=== PATIENT | male | born 1985 | race Caucasian/White ===

== ENCOUNTER 2019-02-08 18:14 | Emergency (ER) | payer SELFPAY ==
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
[2019-02-08] MEDS ORDERED: Lidocaine 1% 10 ML MDV INJECT ONE (19:40)
[2019-02-08] MEDS ORDERED: Ketorolac 60 MG/2 ML SDV IM ONE (20:01)
--- NOTE | 2019-02-09 12:00 | CR ---
Left thumb: Four views of the left thumb were obtained. Comparison: No previous thumb or hand exam is available. Joint spaces are preserved. No fracture, dislocation or other bony abnormality is seen. Impression: 1. No bony abnormality is identified on the left thumb exam. Diagnostic code #1
--- NOTE | 2019-02-10 08:01 | CR ---
Left wrist: Four views of the left wrist were obtained. Comparison: No prior wrist exam. Joint spaces are preserved. No fracture, dislocation or other bony abnormality is identified. Impression: 1. No abnormality is appreciated on left wrist exam. Diagnostic code #1
== END 2019-02-08 21:21 | disposition home or self-care (01) ==
LOC: JD.ED 18:14
DX: S67.02XA Crushing injury of left thumb, initial encounter (principal); S67.32XA Crushing injury of left wrist, initial encounter; S61.012A Laceration without foreign body of left thumb without damage to nail, initial encounter; Z88.7 Allergy status to serum and vaccine; W20.8XXA Other cause of strike by thrown, projected or falling object, initial encounter
CPT/HCPCS: 29125; 73110; 73140; 99283; J1885; J2001; 12001

== ENCOUNTER 2020-09-04 09:36 | Emergency (ER) | payer OTHER ==
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
--- NOTE | 2020-09-06 07:15 | CR ---
Chest: AP view of the chest was obtained. Comparison: Prior chest x-ray of 10/23/17. Heart size and mediastinum are normal. Lungs are clear with no acute parenchymal change. No acute osseous abnormality is appreciated. Impression: 1. Nothing acute is appreciated on frontal chest x-ray. 2. No appreciable change is seen from previous chest x-ray. Diagnostic code #1
--- NOTE | 2020-09-06 07:31 | CR ---
Left shoulder: 3 views of the left shoulder were obtained. Comparison: No prior left shoulder exam is available. Glenohumeral joint and acromioclavicular joint appear within normal limits. No acute fracture, dislocation or other bony abnormality is appreciated. Impression: 1. Nothing acute is seen on left shoulder study. Diagnostic code #1
--- NOTE | 2020-09-06 08:05 | CT ---
CT cervical spine Technique: Multiple axial sections were obtained from above C1 inferiorly to the bottom of T2. Reconstructed coronal and sagittal images were obtained. Comparison: Prior cervical spine CT study of 01/21/12. Findings: Mild endplate concavities are seen superiorly within C7 and T1 which appear old. Old ununited fracture is noted within the tip of the spinous process of T1. Vertebral body heights are maintained. No bony central or bony neural foraminal stenosis is seen. Apophyseal joints appear within normal limits for the patient's age. No acute fracture or subluxation is seen. Impression: 1. Old findings within C7 and T1 as noted above. 2. Nothing acute is appreciated on CT study of the cervical spine. Diagnostic code #2 I slightly disagree with preliminary report from [facility], finalized on 09/04/20, 12:44 PM CDT, code #2
--- NOTE | 2020-09-06 09:17 | CT ---
CT thoracic spine Technique: Multiple axial sections through the thoracic spine were obtained. Reconstructed coronal and sagittal images were obtained. Comparison: Prior cervical spine study performed on the same day as well as old cervical spine CT exam performed on 01/21/12. Findings: Vertebral body heights and disc spaces are maintained. No bony central or bony neural foraminal stenosis is seen. Old findings are noted within the cervical spine and within T1. No paravertebral soft tissue swelling is noted. Impression: 1. Old findings within the cervical spine and within T1. Diagnostic code #2 I minimally disagree with preliminary report from [facility], finalized on 09/04/20, 12:50 PM CDT, code 2
--- NOTE | 2020-09-06 09:18 | CT ---
Head CT Technique: Multiple axial sections through the brain were obtained. Reconstructed coronal and sagittal images were obtained. Intravenous contrast was not utilized. Comparison: Prior head CT study of 12/06/18. Findings: Ventricles along with basal cisterns and sulci over the convexities are within normal limits. No abnormal parenchymal densities are seen. No evidence of intracranial hemorrhage. No midline shift or mass-effect is seen. Bone window settings were reviewed. Mild mucosal thickening is noted within the ethmoid and frontal sinuses. No acute mastoid sinus findings are seen. No acute calvarial abnormality is appreciated. Impression: 1. Nothing acute is appreciated on noncontrast head CT study. 2. Mild mucosal thickening within the paranasal sinuses which is most likely chronic. Diagnostic code #2 I agree with preliminary report from [facility], finalized on 09/04/20, 12:40 PM CDT, code 1
--- NOTE | 2020-09-06 09:19 | CT ---
CT lumbar spine Technique: Multiple axial sections through the lumbar spine were obtained. Reconstructed coronal and sagittal images were obtained. Findings: Vertebral body heights and disc spaces are maintained. No fracture is appreciated. No abnormal subluxation is appreciated. Posterior discs appear to be fairly well preserved. Impression: 1. Nothing acute is seen on CT study of the lumbar spine. Diagnostic code #1 I agree with preliminary report from [facility], finalized on 09/04/20, 12:51 PM CDT, code 1
== END 2020-09-04 12:15 | disposition home or self-care (01) ==
LOC: JD.ED 09:36
DX: S16.1XXA Strain of muscle, fascia and tendon at neck level, initial encounter (principal); S39.012A Strain of muscle, fascia and tendon of lower back, initial encounter; S29.019A Strain of muscle and tendon of unspecified wall of thorax, initial encounter; I10 Essential (primary) hypertension; Z88.7 Allergy status to serum and vaccine; V03.10XA Pedestrian on foot injured in collision with car, pick-up truck or van in traffic accident, initial encounter; Y92.410 Unspecified street and highway as the place of occurrence of the external cause
CPT/HCPCS: 70450; 70450-26; 71045; 71045-26; 72125; 72125-26; 72128; 72128-26; 72131; 72131-26; 73030-26-LT; 73030-LT; 99284; 99284-25

== ENCOUNTER 2021-03-24 12:04 | Emergency (ER) | payer MEDICAID ==
[2021-03-24] MEDS ORDERED: Lidocaine 1% 10 ML MDV INJECT ONE (12:32)
--- NOTE | 2021-03-24 13:05 | EDM.PDOC ---
ED HPI GENERAL MEDICAL PROBLEM - General Chief Complaint: Laceration Stated Complaint: RT FINGER LAC Time Seen by Provider: 03/24/21 12:09 Source of Information: Reports: Patient History Limitations: Reports: No Limitations - History of Present Illness INITIAL COMMENTS - FREE TEXT/NARRATIVE: 36-year-old male presents the emergency department with a laceration to the palmar aspect of his distal right middle finger. Patient states he reached behind his seat and accidentally grabbed the blade and of a floors buffer. Bleeding was controlled with pressure. Patient sustained a 1 cm laceration. Patient believes last tetanus shot was less than 5 years ago. Right Finger-Middle Pain Score (Numeric/FACES): 1 - Related Data Allergies Allergy/AdvReac Type Severity Reaction Status Date / Time diphtheria, pertussis, Allergy Anaphylactic Verified 03/24/21 12:23 tetanus vacc Shock Home Meds: Home Meds . [No Known Home Meds] 03/24/21 [History] Past Medical History - Past Health History Medical/Surgical History: Denies Medical/Surgical History Cardiovascular History: Reports: Hypertension Other Cardiovascular History: chronic hypertension and is non-compliant with meds Gastrointestinal History: Reports: Other (See Below) Other Gastrointestinal History: endoscopy Psychiatric History: Reports: Anxiety - Infectious Disease History Infectious Disease History: Reports: Influenza, Novel Coronavirus Social & Family History - Tobacco Use Tobacco Use Status *Q: Never Tobacco User Second Hand Smoke Exposure: No - Caffeine Use Caffeine Use: Reports: None - Alcohol Use Days Per Week of Alcohol Use: 7 Number of Drinks Per Day: 1 Total Drinks Per Week: 7 - Recreational Drug Use Recreational Drug Use: No - Living Situation & Occupation Living situation: Reports: 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 ED EXAM, SKIN/RASH Exam: See Below Exam Limited By: No Limitations General Appearance: Alert, WD/WN, No Apparent Distress Ears: Normal External Exam, Hearing Grossly Normal Nose: Normal Inspection Throat/Mouth: Normal Inspection, Normal Lips, Normal Voice, No Airway Compromise Head: Atraumatic, Normocephalic Neck: Normal Inspection, Supple Respiratory/Chest: No Respiratory Distress Cardiovascular: Normal Peripheral Pulses, Regular Rate, Rhythm GI/Abdominal: No Distention (Male) Exam: Deferred Rectal (Males) Exam: Deferred Back Exam: Normal Inspection Extremities: Normal Range of Motion, Non-Tender, Normal Capillary Refill, Other (1 and half centimeter laceration noted to the palmar aspect of the patient's right middle finger on the distal end) Neurological: Alert, Oriented, Normal Cognition Psychiatric: Normal Affect, Normal Mood Skin: Warm, Dry, Intact, Normal Color, No Rash Location, Skin: Upper Extremity, Right Characteristics: Linear Lymphatic: No Adenopathy ED SKIN PROCEDURES - Laceration/Wound Repair Right Medial Distal Digit - 3rd (Middle) Appearance: Superficial Anesthetic Type: Local Local Anesthesia - Lidocaine (Xylocaine): 1% Plain Local Anesthetic Volume: 2cc Closed with: Sutures Lac/Wound length In cm: 1.5 Suture Size: 5-0 # of Sutures: 5 Suture Type: Nylon, Interrupted Course - Vital Signs Text/Narrative:: As stated above, patient presents with a laceration to his right middle finger on the palmar aspect along the pad. Patient sustained a 1 and half centimeter linear laceration. Bleeding is controlled. I have ordered lidocaine as the wound will need to be sutured. Last Recorded V/S: Last Vital Signs Temp 97.5 F 03/24/21 12:16 Pulse 82 03/24/21 12:16 Resp 16 03/24/21 12:16 BP 143/110 H 03/24/21 12:16 Pulse Ox - Orders/Labs/Meds Meds: Medications Discontinued Medications Generic Name Dose Route Start Last Admin Trade Name Ricarda PRN Reason Stop Dose Admin Lidocaine HCl 10 ml 03/24/21 12:32 03/24/21 12:41 Lidocaine 1% 10 Ml Mdv INJECT 03/24/21 12:33 10 ml ONETIME ONE Administration - Re-Assessments/Exams Free Text/Narrative Re-Assessment/Exam: 03/24/21 13:07 Wound was prepped and draped in sterile fashion. Patient tolerated suturing well. He will be discharged home. Departure - Departure Time of Disposition: 13:03 Disposition: Home, Self-Care 01 Condition: Good Clinical Impression: Laceration of finger of right hand Qualifiers: Encounter type: initial encounter Finger: middle finger Damage to nail status: without damage Foreign body presence: without foreign body Qualified Code(s): S61.212A - Laceration without foreign body of right middle finger without damage to nail, initial encounter - Discharge Information Instructions: Laceration Care, Adult, [id number], Sutures, [place], or Adhe sive Wound Closure, [id number] Referrals: Cole Viera PA-C [Primary Care Provider] - Forms: ED Department Discharge Additional Instructions: You were seen in the emergency department today for a laceration to your right middle finger. Wound was cleaned and 5 sutures were placed. Leave the dressing in place for 24 hours. Once you remove the dressing and wash the wound twice daily with mild soap such as Dial or Wilfredo's baby shampoo. Pat the wound dry. Apply a thin film of bacitracin and a clean bandage. Sutures will need to be removed in 10 days time. Watch for any signs or symptoms of infection such as increased warmth, redness, swelling or pus. Should your condition worsen or change, do not hesitate returning to the emergency department. Sepsis Event Note (ED) - Evaluation Sepsis Screening Result: No Definite Risk - Focused Exam Vital Signs: Vital Signs Temp Pulse Resp BP 03/24/21 12:16 97.5 F 82 16 143/110 H
== END 2021-03-24 13:19 | disposition home or self-care (01) ==
LOC: JD.ED 12:04
DX: S61.212A Laceration without foreign body of right middle finger without damage to nail, initial encounter (principal); I10 Essential (primary) hypertension; Z88.7 Allergy status to serum and vaccine; W26.8XXA Contact with other sharp object(s), not elsewhere classified, initial encounter
CPT/HCPCS: 12001; 99282-25

== ENCOUNTER → 2021-03-25 | Day surgery (SDC) | payer OTHER ==
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
[~2021-03-25] MED LIST: Acetaminophen/HYDROcodone 325-5 MG Tab PO ONE; Albuterol 0.083% 2.5 MG/3 ML Neb Soln NEB ONE; Bupivacaine 0.25% 10 ML SDV ONE; Cyclobenzaprine 10 MG Tab PO ONE; Lactated Ringers 1,000 ML IV SCH; Lidocaine 1%/Sod Bicarbonate in NS 8.4% 1 ML Syringe IDERM PRN; Midazolam 1 MG/ML 2 ML SDV ONE; Ondansetron 4 MG/2 ML SDV ONE; Propofol 200 MG/20 ML SDV ONE; Sodium Chloride 0.9% 10 ML Syringe FLUSH PRN; Triamcinolone Acetonide 40 MG/ML 1 ML SDV ONE; fentaNYL 100 MCG/2 ML SDV ONE
--- NOTE | 2021-03-25 12:41 | PCM48HPAN ---
Post Anesthesia Note - EVALUATION WITHIN 48HRS OF ANESTHETIC Vital Signs in Normal Range: Yes Patient Participated in Evaluation: Yes Respiratory Function Stable: Yes Airway Patent: Yes Cardiovascular Function Stable: Yes Hydration Status Stable: Yes Pain Control Satisfactory: Yes Nausea and Vomiting Control Satisfactory: Yes Mental Status Recovered: Yes Vital Signs: Last Vital Signs Temp 98.1 F 03/25/21 10:40 Pulse 90 03/25/21 10:40 Resp 16 03/25/21 10:40 BP 127/97 H 03/25/21 10:40 Pulse Ox 97 03/25/21 10:40 Vital signs at 1235: 132/72 HR 95 96% RA RR 16 97.8
--- NOTE | 2021-03-29 09:32 | PCM.OPNOTE ---
- General Post-Op/Procedure Note Date of Surgery/Procedure: 03/25/21 Operative Procedure(s): left shoulder manipulation under anesthesia with left shoulder corticosteroid injection Pre Op Diagnosis: left shoulder adhesive capsulitis Post-Op Diagnosis: left upper extremity and neck pain Anesthesia Technique: MAC Primary Surgeon: Ar Topete Anesthesia Provider: Nirali Hughes EBL in mLs: 0 Complications: None Condition: Good
--- NOTE | 2021-03-29 09:55 | OR ---
DATE OF OPERATION: 03/25/2021 SURGEON: Ar Topete MD OPERATION PERFORMED: Left shoulder manipulation under anesthesia with left shoulder corticosteroid injection. PREOPERATIVE DIAGNOSIS: Left shoulder adhesive capsulitis. POSTOPERATIVE DIAGNOSIS: Left upper extremity pain and neck pain. ANESTHESIA: MAC. ANESTHESIA PROVIDER: Sebastian Aguilera. ESTIMATED BLOOD LOSS: Not applicable. COMPLICATIONS: None. CONDITION: Stable. DESCRIPTION OF PROCEDURE: The patient was identified in the preoperative holding area. Proper site was marked and identified by the surgeon. The patient's preop manipulation motion showed -5 degrees of external rotation and minimal 50 degrees of abduction and forward flexion. After this, the patient was brought back to the operating theater where after adequate anesthesia, the patient had full range of motion. There was no adhesive capsulitis and no contractures whatsoever when he was under anesthesia. At this time, under sterile technique 2 mL of 40 mg Kenalog, 4 mL of 0.25% Marcaine were injected into the left shoulder. The patient tolerated this well. At this time, after visiting with the patient in the PACU unit, the patient was having severe pain all the way into his neck and his whole upper extremity after that procedure. At this time, we will begin working up the patient for possible neurologic issues. DONOVAN /[id number]
== END | disposition home or self-care (01) ==
LOC: JD.SDS 10:31
PROVIDERS: ATTEND Orthopaedic Surgery
DX: M75.02 Adhesive capsulitis of left shoulder (principal); F41.8 Other specified anxiety disorders; K21.9 Gastro-esophageal reflux disease without esophagitis; I10 Essential (primary) hypertension; E55.9 Vitamin D deficiency, unspecified; G43.909 Migraine, unspecified, not intractable, without status migrainosus; Z88.8 Allergy status to other drugs, medicaments and biological substances; Z87.891 Personal history of nicotine dependence; Z79.899 Other long term (current) drug therapy
CPT/HCPCS: 20610; 23700; A9270; J2250; J2405; J2704; J3010; J3301; J3490; J7120; 01620

== ENCOUNTER 2021-05-16 08:47 | Emergency (ER) | payer BC, MEDICAID ==
[2021-05-16] MEDS ORDERED: Ketorolac 15 MG/ML SDV IVPUSH ONE (09:21)
[2021-05-16] MEDS ORDERED: Lactated Ringers 1,000 ML IV ONE (09:21)
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
[2021-05-16 10:04] LABS: CORONAVIRUS COVID-19 NAA POSITIVE (NEGATIVE)
--- NOTE | 2021-05-16 11:05 | CR ---
EXAM: XR CHEST 1 VIEW [facility] DATE/TIME: 05/16/2021 9:23 AM INDICATION: Dyspnea COMPARISON: 09/04/20 IMPRESSION: Negative chest. Negative clear. Normal heart size. SIGNED BY: Cheikh Molina DO 05/16/2021 10:[address] [facility]
== END 2021-05-16 10:50 | disposition home or self-care (01) ==
LOC: JD.ED 08:47
DX: U07.1 COVID-19 (principal); Z88.7 Allergy status to serum and vaccine
CPT/HCPCS: 0241U; 36415; 71045; 71045-26; 80053; 82553; 83605; 85025; 85379; 86140; 96374; 99283; 99285-25; J1885; J7120

== ENCOUNTER 2021-06-04 02:47 | Emergency (ER) | payer BC, MEDICAID | END 2021-06-04 03:38 | disposition home or self-care (01) | LOC: JD.ED 02:47 | DX: K03.81 Cracked tooth (principal); I10 Essential (primary) hypertension; J45.909 Unspecified asthma, uncomplicated; Z86.16 Personal history of COVID-19; Z88.7 Allergy status to serum and vaccine | CPT/HCPCS: 99282; 99283 ==

== ENCOUNTER 2021-06-22 10:38 | Emergency (ER) | payer MEDICAID | END 2021-06-22 11:45 | disposition home or self-care (01) | LOC: SUPCPDRO 10:38 → JD.ED 10:38 | DX: K04.7 Periapical abscess without sinus (principal); I10 Essential (primary) hypertension; Z88.7 Allergy status to serum and vaccine | CPT/HCPCS: 99282; 99283 ==

== ENCOUNTER 2021-07-26 15:31 | Emergency (ER) | payer MEDICAID ==
[2021-07-26] MEDS ORDERED: Lidocaine 1% 10 ML MDV INJECT ONE (15:48)
[2021-07-26] MEDS ORDERED: HYDROmorphone 1 MG/ML Syringe IM ONE (16:03)
[2021-07-26] MEDS ORDERED: Lidocaine 1% 10 ML MDV ONE (16:54)
[2021-07-26] MEDS ORDERED: cefTRIAXone 1 GM, Lidocaine 1% 2.1 ML IM ONE ×2 (17:44)
== END 2021-07-26 18:42 | disposition home or self-care (01) ==
LOC: JD.ED 15:31
DX: S41.112A Laceration without foreign body of left upper arm, initial encounter (principal); I10 Essential (primary) hypertension; K21.9 Gastro-esophageal reflux disease without esophagitis; Z86.16 Personal history of COVID-19; Z88.7 Allergy status to serum and vaccine; W31.2XXA Contact with powered woodworking and forming machines, initial encounter
CPT/HCPCS: 12005; 96372; 99282; J0696; J1170; 99284

== ENCOUNTER 2022-02-02 19:29 | Emergency (ER) | payer MEDICAID, OTHER ==
[2022-02-02 22:03] LABS: ESTIMATED GFR 73 mL/min (>60)
== END 2022-02-03 00:15 | disposition home or self-care (01) ==
LOC: JD.ED 19:29
DX: R53.1 Weakness (principal); I10 Essential (primary) hypertension; Z88.7 Allergy status to serum and vaccine; Z79.899 Other long term (current) drug therapy; Z86.16 Personal history of COVID-19
CPT/HCPCS: 36415; 70450; 70450-26; 80053; 83735; 84484; 85025; 93005; 93010; 93246; 99284; 99285

== ENCOUNTER 2022-04-13 03:34 | Emergency (ER) | payer MEDICAID ==
[2022-04-13] MEDS ORDERED: Morphine 4 MG/ML Syringe IVPUSH ONE (03:51)
[2022-04-13] MEDS ORDERED: Iopamidol 612 MG/ML 100 ML Bottle IVPUSH ONE (04:10)
[2022-04-13] MEDS ORDERED: HYDROmorphone 1 MG/ML Syringe IVPUSH ONE (04:30)
== END 2022-04-13 06:20 | disposition home or self-care (01) ==
LOC: JD.ED 03:34
DX: R10.32 Left lower quadrant pain (principal); I10 Essential (primary) hypertension; J45.909 Unspecified asthma, uncomplicated; Z88.7 Allergy status to serum and vaccine; Z79.899 Other long term (current) drug therapy
CPT/HCPCS: 74177; 96374; 96375; 99283; J1170; J2270; Q9967

== ENCOUNTER 2022-08-25 20:13 | Emergency (ER) | payer MEDICAID ==
[2022-08-25] MEDS ORDERED: LORazepam 1 MG Tab PO ONE (21:19)
[2022-08-26] MEDS ORDERED: Haloperidol 5 MG Tab PO ONE (00:21)
[2022-08-26] MEDS ORDERED: OLANZapine 10 MG Vial IM ONE (02:59)
[2022-08-26] MEDS ORDERED: OLANZapine 10 MG Vial IM STA (11:22)
[2022-08-26] MEDS: levETIRAcetam 500 MG Tab PO SCH ×2 (11:43→20:45)
[2022-08-26] MEDS: amLODIPine 5 MG Tab PO SCH (11:45)
[2022-08-27] MEDS: amLODIPine 5 MG Tab PO SCH (08:06)
[2022-08-27] MEDS: levETIRAcetam 500 MG Tab PO SCH (08:06)
== END 2022-08-27 08:11 ==
LOC: JD.ED 20:13
DX: S60.512A Abrasion of left hand, initial encounter (principal); S60.511A Abrasion of right hand, initial encounter; I10 Essential (primary) hypertension; J45.909 Unspecified asthma, uncomplicated; Z86.16 Personal history of COVID-19; Z20.822 Contact with and (suspected) exposure to COVID-19; Z88.7 Allergy status to serum and vaccine; W22.8XXA Striking against or struck by other objects, initial encounter; Y92.89 Other specified places as the place of occurrence of the external cause
CPT/HCPCS: 36415; 73130; 80053; 80306; 80307; 81003; 83690; 84484; 85025; 93005; 96372; 99285; A9270; 93010; J2405; U0002

== ENCOUNTER 2024-03-05 10:45 | Emergency (ER) | payer MEDICARE, MEDICAID ==
[2024-03-05 11:49] LABS: BASOPHILS ABSOLUTE AUTO 0.1 K/mm3 (0.0-0.2); EOSINOPHILS ABSOLUTE AUTO 0.1 K/mm3 (0.0-0.4); EOSINOPHILS PERCENT AUTO 1.1 % (0.0-6.0); HEMATOCRIT 46.5 % (42.0-52.0); HEMOGLOBIN 15.8 gm/dl (14.0-18.0); IMMATURE GRAN ABSOLUTE AUTO 0.04 K/mm3 (0.00-0.05); IMMATURE GRAN PERCENT AUTO 0.4 % (0.0-0.4); LYMPHOCYTES ABSOLUTE AUTO 2.1 K/mm3 (1.0-4.8); LYMPHOCYTES PERCENT AUTO 20.5 % (24.0-44.0); MEAN CORPUSCULAR HEMOGLOBIN 30.4 pg (28.0-32.0); MEAN CORPUSCULAR VOLUME 89.6 fl (83.0-99.0); MEAN PLATELET VOLUME 9.3 fl (9.4-12.4); MONOCYTES ABSOLUTE AUTO 0.6 K/mm3 (0.0-0.8); MONOCYTES PERCENT AUTO 6.1 % (0.0-8.0); NEUTROPHILS ABSOLUTE AUTO 7.3 K/mm3 (1.8-7.7); NEUTROPHILS PERCENT AUTO 70.9 % (41.0-71.0); PLATELET COUNT,PLT 351 K/mm3 (150-400); RED BLOOD CELL COUNT 5.19 M/mm3 (4.52-5.90); WHITE BLOOD CELL COUNT,WBC 10.22 K/mm3 (3.9-11.3)
[2024-03-05] MEDS: Sodium Chloride 0.9% 1,000 ML IV STA (11:52)
[2024-03-05] MEDS: Ondansetron 4 MG/2 ML SDV IVPUSH ONE (11:52)
[2024-03-05] MEDS: LORazepam 2 MG/ML SDV IVPUSH ONE (11:52)
[2024-03-05 12:09] LABS: A/G RATIO 1.1 (1-2); ALANINE AMINOTRANSFERASE,ALT 37 U/L (16-63); ALBUMIN 4.7 g/dl (3.4-5.0); ALKALINE PHOSPHATASE 116 U/L (46-116); ANION GAP 21.8 (5-15); ASPARTATE AMNIOTRANSFERASE,AST 26 U/L (15-37); BILIRUBIN TOTAL 1.2 mg/dL (0.2-1.0); BLOOD UREA NITROGEN,BUN 16 mg/dL (7-18); BUN/CREATININE RATIO 10.7 (14-18); C-REACTIVE PROTEIN 0.55 mg/dL (<0.30); CALCIUM 9.1 mg/dL (8.5-10.1); CARBON DIOXIDE,CO2 20 mEq/L (21-32); CHLORIDE,CL 100 mEq/L (98-107); CREATININE 1.5 mg/dL (0.7-1.3); EST CRCL DRUG DOSING (CG) 79.81 mL/min; ESTIMATED GFR 61 mL/min (>60); GLUCOSE RANDOM 112 mg/dL (70-99); POTASSIUM,K 3.8 mEq/L (3.5-5.1); PROTEIN TOTAL,TP 9.1 g/dl (6.4-8.2); SODIUM,NA 138 mEq/L (136-145); TROPONIN I HIGH SENSITIVITY < 4 pg/mL (<=76)
[2024-03-05 12:31] LABS: CORONAVIRUS COVID-19 NAA NEGATIVE (NEGATIVE); INFLUENZA A NAA NEGATIVE (NEGATIVE); RESPIRATORY SYNCYTIAL VIR NAA NEGATIVE (NEGATIVE)
[2024-03-05] MEDS ORDERED: Haloperidol 1 MG Tab PO ONE (13:47)
[2024-03-05] MEDS: Haloperidol Lactate 5 MG/ML SDV IVPUSH ONE ×2 (14:08→14:21)
[2024-03-05] MEDS: Lactated Ringers 1,000 ML IV ONE (14:08)
[2024-03-05 15:09] LABS: BARBITURATE SCREEN,URINE NEGATIVE (CUTOFF=200); BENZODIAZEPINES SCREEN,URINE PRESUMPTIVE POSITIVE (CUTOFF=150); BUPRENORPHINE SCREEN,URINE NEGATIVE (CUTOFF=10); METHADONE SCREEN, URINE NEGATIVE (CUT0FF=200); METHAMPHETAMINES SCREEN, URINE NEGATIVE (CUTOFF=500); OXYCODONE SCREEN,URINE NEGATIVE (CUT0FF=100); THC SCREEN,URINE 20 NG/ML PRESUMPTIVE POSITIVE (CUTOFF=50)
[2024-03-05 15:19] LABS: AMPHETAMINES SCREEN, URINE NEGATIVE (CUTOFF=500)
== END 2024-03-05 16:07 | disposition home or self-care (01) ==
LOC: JD.ED 10:45
DX: R11.2 Nausea with vomiting, unspecified (principal); F12.90 Cannabis use, unspecified, uncomplicated; I10 Essential (primary) hypertension; Z86.16 Personal history of COVID-19; J45.909 Unspecified asthma, uncomplicated; Z79.899 Other long term (current) drug therapy; Z88.7 Allergy status to serum and vaccine
CPT/HCPCS: 0241U; 36415; 71046; 80053; 80306; 84484; 85025; 85379; 86140; 93005; 96361; 96374; 96375; 99285; J1630; J2060; J2405; J7030; J7120; 93010; 99283